=== PATIENT | female | born 1960 | race Caucasian/White ===

== ENCOUNTER 2025-07-22 23:51 | Emergency (ER) | payer OTHER, SELFPAY ==
--- NOTE | ~2025-07-22 | XR_ITS ---
Examination: XR ankle RT min 3V, XR knee RT 3V Clinical History: fall, swelling Comparison: None Technique: 3 views right knee, 4 views right ankle Findings/impression: Right knee: 1. No fracture, dislocation, or effusion. 2. Moderate medial and lateral compartment joint space narrowing. No significant associated degenerative changes. Right ankle: 1. Oblique fracture lateral malleolus extending from level of ankle mortise cephalad. Significant associated soft tissue swelling. 2. No additional fracture noted. 3. Ankle mortise maintained. 4. Mild cortical irregularity fibular midshaft likely chronic stress response. Reviewed, dictated and finalized at location R.
--- NOTE | ~2025-07-22 | CT_ITS ---
EXAMINATION: CT ankle RT wo con DATE: 07/23/2025 02:57 INDICATION: Right ankle pain. Fall. TECHNIQUE: Computed tomography (CT) of the right ankle was performed without intravenous contrast. Automated exposure control and iterative reconstruction technique were employed. The dose-length product was 372.11 mGy-cm. COMPARISON: Right ankle radiographs 07/23/2025 FINDINGS: There is a comminuted fracture of distal fibula with proximal medial fracture line 8 mm proximal to the level of the tibial plafond. The main distal fracture fragment demonstrates 1 mm posterolateral displacement. Joint spaces are normal. IMPRESSION: 1. Comminuted fracture of distal fibula. Reviewed, dictated and finalized at location E.
--- NOTE | ~2025-07-22 | CT_ITS ---
EXAMINATION: CT knee RT wo con DATE: 07/23/2025 02:57 INDICATION: Right knee pain. TECHNIQUE: Computed tomography (CT) of the right knee was performed without intravenous contrast. Automated exposure control and iterative reconstruction technique were employed. The dose-length product was 638.88 mGy-cm. COMPARISON: Right knee radiographs 07/23/2025 FINDINGS: Alignment is normal. No fracture. There is moderate osteoarthritis of medial compartment and mild osteoarthritis of lateral and patellofemoral compartments. No knee joint effusion. There is a loose body in the knee joint. IMPRESSION: 1. No fracture. 2. Moderate knee osteoarthritis with loose body. Reviewed, dictated and finalized at location E.
[2025-07-22 23:54] VITALS: BP 150/84; PULSE 89; RESP 18; TEMP 36.2; O2SAT 100
--- NOTE | 2025-07-23 02:07 | ED_ITS ---
HPI - Extremity Injury (Lower) General Chief Complaint: Extremity Injury, Lower Stated Complaint: fall Time Seen by Provider: 07/23/25 01:24 Source: patient and RN notes reviewed Mode of arrival: EMS Limitations: no limitations History of Present Illness HPI Narrative: Patient presents after a fall. Patient reports she was in the bathroom and she slipped. She did not lose consciousness. No syncope. She had a twisting motion. Pain throughout lateral right leg, inferior to the knee joint line and particularly at the lateral malleolus. no medications prior to arrival. She denies any paresthesias. Not on anticoagulation. She has a history of arthritis and is on methotrexate, Humara injections. Also on BP meds. Related Data Allergies Allergy/AdvReac Type Severity Reaction Status Date / Time No Known Allergies Allergy Verified 07/22/25 23:57 [facility] Past Medical History Medical History (Updated 07/23/25 @ 08:57 by Hope Ferguson MD) Hypertension Arthritis Surgical History Surgical History History of brain shunt Family History Family History Son History of orthopedic surgery Exam Narrative: GENERAL: Well-appearing, well-nourished, and in no acute distress. HEAD: Normocephalic, atraumatic. EYES: Non injected, non icteric ENT: Nares clear, no rhinorrhea or epistaxis. Gross auditory acuity intact. NECK: Supple. No meningismus. CHEST: Speaking in full sentences. No respiratory distress. HEART: Regular rate and rhythm. . ABDOMEN: Soft, nondistended. EXTREMITIES: Patient is able to demonstrate full range of motion with flexion extension of her right lower extremity. Pain to palpation of posterior knee in the popliteal space. Also pain to the right lateral malleolus which has some swelling. Extremity otherwise warm and well perfused. No erythema. SKIN: Warm, dry; edema throughout right ankle, particular lateral. NEURO: No focal deficits. Alert and oriented. Answering questions. Following commands. Normal speech without aphasia or dysarthria. Sensation intact throughout lower right extremity. PSYCH: Congruent mood and affect. Course Vital Signs Vital signs: Vital Signs Temperature 97.2 F L 07/22/25 23:54 Pulse Rate 89 07/22/25 23:54 Respiratory Rate 18 07/22/25 23:54 Blood Pressure 150/84 H 07/22/25 23:54 Pulse Oximetry 100 07/22/25 23:54 Oxygen Delivery Room Air 07/22/25 23:54 Temperature 97.2 F L 07/22/25 23:54 Pulse Rate 77 07/23/25 02:21 Respiratory Rate 18 07/23/25 02:21 Blood Pressure 141/74 H 07/23/25 02:21 Pulse Oximetry 99 07/23/25 02:21 Oxygen Delivery Room Air 07/22/25 23:54 MDM - Extremity Injury (Lower) MDM Narrative Medical decision making narrative: Patient presents after an accidental fall while in the bathroom. She sustained a twisting motion in the process and is now having pain throughout her right leg from the lateral aspect of her right knee down to the right lateral malleolus, particularly the latter. In the emergency department she is afebrile with vital signs notable for hypertension. Extensor and flexor mechanism intact. Otherwise reassuring physical exam. CT recommended even though the fx is seen on plain film. Will extend to knee as well to r/o occult tibial plateau fracture. CT imaging confirms what x-ray already showed. Discussed this with patient and she verifies understanding however she does appear to be a bit anxious and mildly distressed by this information. She is enquiring about the need for surgery. I discussed that this would likely be a non operative however I deferred expertise to the orthopedic surgeon with whom she should follow up. She notes that her son had orthopedic surgery and now has a mark in other hardware. Discussed with patient the risks and benefits of narcotic medication as well as safe use and appropriate disposal, etc. In the use of these medications for breakthrough pain but otherwise Tylenol and ibuprofen were also appropriate. Patient is noted to become very tearful in the room and is crying while on the phone. Nurse reports that she was feeling a little overwhelmed and was in the process of calling for a ride back home; concerned because she has to go up 3 steps. Splint was applied (advised posterior short leg with stirrup) and crutches offered with crutch training. Differential Diagnosis Differential diagnosis: Likely ankle sprain and strain, acute internal nazanin angement of knee (including ligamentous/meniscal injury), ankle fracture and other (considered occult tibial plateau fracture and injury of muscle/tendon) Imaging Data Attestation: I personally reviewed and interpreted this imaging study as follows: My impression: Fibula fracture on my independent interpretation x-ray. Radiologist's impression: Xray ankle 3 view stat rad: Lateral malleolus fracture. Consider CT Xray knee 3 view stat rad: No acute osseous finding. Consider cross-sectional imaging if there is further concern. CT R knee stat rad: Compared to prior same day x-ray. No acute displaced fracture. Consider MRI if there is further concern. CT R ankle Stat rad: Compared to prior same day x-ray. Lateral malleolar fracture. Discharge Plan Discharge Clinical Impression: Fall Closed fracture of lateral malleolus of right ankle Qualifiers: Encounter type: initial encounter Fracture alignment: nondisplaced Qualified Code(s): S82.64XA - Nondisplaced fracture of lateral malleolus of right fibula, initial encounter for closed fracture Patient Disposition: Home Condition: Stable Instructions: Antibiotic Form, Ankle Fracture (DC), Narcotic Safety (ED), Splint Care (ED), Fall Prevention (ED) Additional Instructions: Acetaminophen/Tylenol (maximum 4000 mg per day) is safe to take with NSAIDs (ibuprofen/Motrin) for pain relief. For breakthrough pain, opiate/narcotic medications have been prescribed. Use as directed. Follow-up with the orthopedic surgeon below. Call their office to schedule the appointment. Return to the emergency department any new or worsening symptoms. Patient Language: Croatian Prescriptions: New ibuprofen 600 mg tablet 600 mg PO TID PRN (Reason: pain) Qty: 30 0RF acetaminophen 500 mg capsule 1,000 mg PO Q6H PRN (Reason: pain) Qty: 30 0RF oxycodone 5 mg tablet 5 mg PO Q8H PRN (Reason: pain) Qty: 14 0RF Follow-up/Referrals: PHYSICIAN NOT ON STAFF,NONSTAFF [Primary Care Provider] Lambert Hector MD [Physician, Orthopedics] Stand Alone Forms: Work/School Release IP Time of Disposition: 04:03
[2025-07-23] MEDS: HYDROcodone/acetaminophen (*CRX) 5-325 MG TABLET 1 TAB PO (02:17)
[2025-07-23 02:21] VITALS: BP 141/74; PULSE 77; RESP 18; O2SAT 99
== END 2025-07-23 04:37 | disposition home or self-care (01) ==
PROVIDERS: Emergency Provider Student in an Organized Health Care Education/Training Program
DX: S82.64XA Nondisplaced fracture of lateral malleolus of right fibula, initial encounter for closed fracture (principal); I10 Essential (primary) hypertension; M17.11 Unilateral primary osteoarthritis, right knee; Z79.631 Long term (current) use of antimetabolite agent; Z79.620 Long term (current) use of immunosuppressive biologic; W01.0XXA Fall on same level from slipping, tripping and stumbling without subsequent striking against object, initial encounter
CPT/HCPCS: 29515; 73562; 73610; 73700; 99284; A9270